=== PATIENT | male | born 1970 | race Caucasian/White ===

== ENCOUNTER 2025-07-28 18:19 | Emergency (ER) | payer MEDICAID, SELFPAY ==
[2025-07-28 18:21] VITALS: BP 150/110
[2025-07-28 18:42] LABS: Hematocrit 44.7 % (39.0-52.0); Hemoglobin 15.4 g/dL (13.0-18.0); Mean Corp Hgb Conc. 34.5 g/dL (33.0-37.0); Mean Corpuscular Volume 86.3 fL (80.0-94.0); Nucleated Red Blood Cells % 0 % (-); Platelet Count 314 10^3/uL (130-400); Red Cell Dist. Width 12.1 % (11.5-14.5)
[2025-07-28 18:55] LABS: ALT (SGPT) 39 U/L (0-50); AST (SGOT) 30 U/L (17-59); Albumin 4.6 g/dl (3.5-5.0); Alkaline Phosphatase 67 U/L (38-126); Blood Urea Nitrogen 27 mg/dl (9-20); Calcium 9.2 mg/dl (8.4-10.2); Carbon Dioxide 23 mmol/L (22-30); Chloride 108 mmol/L (98-107); Glucose 151 mg/dl (70-99); Potassium 3.8 mmol/L (3.5-5.1); Sodium 141 mmol/L (135-145); Total Protein 7.8 g/dl (6.3-8.2); eGFR > 60.00
[2025-07-28 18:57] LABS: COVID-19 Antigen Negative (Negative)
[2025-07-28] MEDS: DUONEB 3 ML INH (20:14)
[2025-07-28] MEDS: DECADRON 10 MG PO (20:14)
--- NOTE | 2025-07-28 21:21 | ED.GENMED ---
Addendum entered and electronically signed by Jim Eugene MD 07/30/25 18:01:
I received a call today that pharmacy does not carry promethazine�codeine that was prescribed for cough. I called in a prescription for benzonatate for the patient to help with cough.
Original Note:
History of Present Illness
General
Chief Complaint: Cough
Source: patient
Exam Limitations: none
Time Seen by Provider: 07/28/25 19:52
Nursing documentation reviewed up to this point in time: agreed with
History of Present Illness
History of Present Illness:
Patient to ED wtih report of worsening cough. States he has had a cough for the past 2 years but over the past few days cough has worsened. Denies fever/chills. Brought self to ED for eval.
Past History
Past History
ED Past Medical History: None
Review of Systems
Review of Systems
Allergies reviewed?: Yes
All Other Systems: ROS reviewed and negative except as documented in HPI and ROS
Constitutional: Reports no symptoms
EENT: Reports no symptoms
Respiratory: Reports cough
Cardiac: Reports no symptoms
ABD/GI: Reports no symptoms
: Reports no symptoms
Musculoskeletal: Reports no symptoms
Skin: Reports no symptoms
Neurological: Reports no symptoms
Psychiatric: Reports no symptoms
Phy Exam
General Physical Exam
General Presentation: well appearing and mild distress
General age: appears stated age
General Skin: warm and dry
General Habitus: normal
General Mental: alert
Cardiovascular Exam
Cardiovascular Exam: regular rate/rhythm and no edema
Pulmonary Exam
Pulmonary Exam: decreased breath sounds
Oxygen Status: room air (98%)
Cough: non productive cough
Musculoskeletal Exam
Musculoskeletal Exam: full ROM and neuro vasc intact
Skin Exam
Skin Exam: normal color, warm/dry and no rash
Psychiatric Exam
Psychiatric Exam: normal mood/affect
Course
Orders/Labs/Results
Orders:
Orders
07/28/25 18:25
CR Chest - 2 Views Urgent
Comment:
Reason For Exam: cough, SOB
07/28/25 18:29
COVID-19 Antigen Urgent
Source: Nasal Swab
Complete Blood Count/With Diff Urgent
Comprehensive Metabolic Panel Urgent
Influenza A+B Rapid Molecular Urgent
[id number] Source: Nasal Swab
Specimen Description:
07/28/25 20:02
Dexamethasone Pf [Decadron] 10 mg PO NOW STA
Ipratropium/Albuterol Sulfate [Duoneb] 3 ml INH R NOW STA
Abnormal Lab Results
07/28/25
18:29
WBC 11.5 H 10^3/uL
(4.8-10.8)
Absolute Neuts (auto) 7.8 H 10^3/uL
(1.4-6.5)
Absolute Monos (auto) 1.2 H 10^3/uL
(0.1-0.6)
Lymphocytes % 19.4 L %
(20.5-51.1)
Monocytes % 10.7 H %
(1.7-9.3)
Chloride 108 H mmol/L
(98-107)
BUN 27 H mg/dl
(9-20)
Glucose 151 H mg/dl
(70-99)
07/28/25 18:29
07/28/25 18:29
Vital Signs
Initial and Last Documented VS:
Initial Vital Signs
Temp Pulse Resp BP Pulse Ox
98.8 F 126 20 150/110 96
07/28/25 18:21 07/28/25 18:21 07/28/25 18:21 07/28/25 18:21 07/28/25 18:21
Last Documented Vital Signs
Temp Pulse Resp BP Pulse Ox
98.8 F 107 23 150/110 95
07/28/25 18:21 07/28/25 19:30 07/28/25 19:30 07/28/25 18:21 07/28/25 21:00
*Radiology
Radiology exam reviewed: radiology read reviewed
*Pulse Oximetry
SaO2: 95
Oxygen Mode of Delivery: Room air
Patient hypoxic: no
*Critical Care Note
Total Time (30-74mins, 75-104mins- exclusive of procedures): Not Applicable
Update Note
Update Note:
Patient to ED wtih report of worsening cough over the past few days. Nonproductive cough. VSS, he remains afebrile. Pulse ox 98% RA, Lungs with decreased breath sounds throughout. Given duoneb and decadron in ED with improvement in lung sounds.
CXR neg for pneumonia. Will discharge home on prednisone taper, albuterol MDI. He will follow up with PCP. Given instructions on s/s to return to ED and he is agreeable to plan.
ED Attending Note
-
Portions of this chart may have been created with voice recognition software.� Occasional wrong word or��sound alike� substitutions may have occurred due to the inherent limitations of voice recognition software.
Discharge Plan
Departure
Patient Disposition: Home (Routine Discharge)
Date of Disposition: 07/28/25
Time of Disposition: 21:14
Patient with high blood pressure during this ER visit?: No
Condition: Good
Covid-19: Not Applicable
Discharge Problem:
Acute bronchitis
Instructions: Acute Bronchitis, Adult (DC)
Prescriptions:
New
prednisone 10 mg Tablet
See Rx Instructions .ROUTE .COMPLEX Qty: 45 0RF
Rx Instructions:
Take By Mouth:
50 mg daily x3 days, 40 mg daily x3 days,
30 mg daily x3 days, 20 mg daily x3 days,
10 mg daily x3 days
albuterol sulfate [Ventolin HFA] 90 mcg/actuation HFA aerosol inhaler
2 puff inhalation QID PRN (Reason: shortness of breath or wheezing) Qty: 8.5 0RF
promethazine-codeine 6.25-10 mg/5 mL syrup
5 ml PO Q6H PRN (Reason: Cough) Qty: 118 0RF
Referrals:
UNKNOWN - PT DOES,NOT KNOW [Family Provider]
Interventions
Interventions:
*Risk Screen - Suicide Last Done: 07/28/25 18:21
*General Assessment Last Done: 07/28/25 18:21
*Neglect/Abuse Screening Last Done: 07/28/25 20:14
*ED COVID-19 Vaccine History Last Done: 07/28/25 20:14
*ED Influenza Vaccine History Last Done: 07/28/25 20:14
ED- Pulmonary Assessment Last Done: 07/28/25 20:19
Discharge Date and Time
Print Language: [place]
[2025-07-28 21:30] VITALS: BP 171/107
== END 2025-07-28 21:37 | disposition home or self-care (01) ==
LOC: EMR 18:19
PROVIDERS: Emergency Medicine; EMERGENCY PHYSICIAN Emergency Medicine
DX: J20.9 Acute bronchitis, unspecified (principal)
CPT/HCPCS: 99283; 94640; 71046; 80053; 85025; 87502; 87811